=== PATIENT | female | born 1990 | race African-American/Black ===

== ENCOUNTER 2024-08-14 11:54 | Inpatient (IN) | payer OTHER ==
[2024-08-14] MEDS: SODIUM CHLORIDE 1,000 ML IV SCH (12:25)
[2024-08-14] MEDS ORDERED: PROMETHAZINE HCL 25 MG/1 ML VIAL ONE (12:46)
[2024-08-14] MEDS ORDERED: BUTORPHANOL TARTRATE 1 MG/ML VIAL ONE (12:46)
[2024-08-14] MEDS: BUTORPHANOL TARTRATE 1 MG/ML VIAL IVPB ONE (12:50)
[2024-08-14] MEDS: PROMETHAZINE HCL 25 MG/1 ML VIAL IVPB ONE (12:50)
[2024-08-14] MEDS ORDERED: ELECTROLYTE-148 SOLN 1,000 ML IV SCH (13:00)
[2024-08-14 13:29] LABS: BASO % 0.3 % (0-2.0); EOS % 0.8 % (0-4.5); HEMATOCRIT 38.3 % (32.4-45.2); HEMOGLOBIN 13.1 GM/dL (10.7-15.3); LYMPH % 19.6 % (8-40); MCH 31.7 pg (25.7-33.7); MCHC 34.1 g/dl (32.0-36.0); MEAN PLT VOLUME 8.6 fl (7.5-11.1); MONO % 6.2 % (3.8-10.2); NEUT % 73.1 % (42.8-82.8); PLATELET COUNT 215 10^3/uL (134-434); RBC 4.12 M/mm3 (3.60-5.2); WHITE BLOOD COUNT 8.2 K/mm3 (4.0-10.0)
[2024-08-14 13:34] LABS: INR 0.98 (0.83-1.09); PROTHROMBIN TIME (PATIENT) 10.8 SEC (9.7-13.0)
[2024-08-14 13:35] VITALS: BMI 30.2
[2024-08-14 13:37] LABS: ACTIVATED PTT 28.3 SECONDS (25.2-36.5)
[2024-08-14 13:46] LABS: BLOOD UREA NITROGEN 6.9 mg/dL (7-18); CALCIUM 9.4 mg/dL (8.5-10.1)
[2024-08-14 13:48] LABS: CREATININE 0.5 mg/dL (0.55-1.3)
[2024-08-14] MEDS ORDERED: OXYTOCIN 30 UNITS in 0.9% NS 30 UNIT/500 ML INFUS.BAG IVPB ONE (14:22)
[2024-08-14] MEDS ORDERED: OXYTOCIN 20 UNITS in 0.9% NS 20 UNIT/1,000 ML INFUS.BAG IV ONE (14:22)
[2024-08-14 14:43] LABS: HIV INTERPRETATION NEGATIVE (NEGATIVE)
[2024-08-14] MEDS: OXYTOCIN 30 UNITS in 0.9% NS 30 UNIT/500 ML INFUS.BAG IVPB SCH (15:00)
[2024-08-14] MEDS: METHYLERGONOVINE MALEATE 0.2 MG/1 ML AMP IM PRN (15:15)
[2024-08-14] MEDS ORDERED: oxyCODONE HCL 5 MG TABLET PO PRN (15:27)
[2024-08-14] MEDS ORDERED: BENZOCAINE 28 GM HEMORRHOIDAL OINTMENT TP PRN (15:27)
[2024-08-14] MEDS ORDERED: ACETAMINOPHEN 325 MG TABLET (FP) PO PRN (15:27)
[2024-08-14] MEDS ORDERED: BENZOCAINE 20% 57 GM BOTTLE TP PRN (15:27)
[2024-08-14] MEDS ORDERED: WITCH HAZEL 50% (TUCKS) 40 PAD/JAR PAD TP PRN (15:27)
[2024-08-14] MEDS ORDERED: BISACODYL 10 MG SUPP.RECT RC PRN (15:27)
[2024-08-14] MEDS ORDERED: OXYTOCIN 30 UNITS in 0.9% NS 30 UNIT/500 ML INFUS.BAG IVPB SCH (15:30)
[2024-08-14] MEDS ORDERED: IBUPROFEN 600 MG TABLET (FP) PO ONE (15:37)
[2024-08-14] MEDS: IBUPROFEN 600 MG TABLET (FP) PO PRN (15:40)
[2024-08-14] MEDS: OXYTOCIN 20 UNITS in 0.9% NS 20 UNIT/1,000 ML INFUS.BAG IV SCH (15:43)
[2024-08-15 07:06] LABS: BASO % 0.3 % (0-2.0); EOS % 0.8 % (0-4.5); HEMOGLOBIN 11.9 GM/dL (10.7-15.3); LYMPH % 19.8 % (8-40); MCH 31.6 pg (25.7-33.7); MCHC 33.9 g/dl (32.0-36.0); MEAN CELL VOLUME 93.2 fl (80-96); MEAN PLT VOLUME 8.4 fl (7.5-11.1); MONO % 8.8 % (3.8-10.2); NEUT % 70.3 % (42.8-82.8); PLATELET COUNT 216 10^3/uL (134-434); RBC 3.75 M/mm3 (3.60-5.2); WHITE BLOOD COUNT 11.7 K/mm3 (4.0-10.0)
[2024-08-15] MEDS ORDERED: SENNOSIDES/DOCUSATE COMBO (SENNA PLUS) TABLET (UD) PO PRN (22:00)
[2024-08-16 09:32] VITALS: BP 115/75; PULSE 90; RESP 18; TEMP 98
== END 2024-08-16 12:40 | disposition home or self-care (01) | DRG 560 ==
LOC: JLDR 11:54 → J3W 17:15
PROVIDERS: ADMIT Specialist; ATTEND Specialist
PROC: 10E0XZZ Delivery of Products of Conception, External Approach (ICD-10-PCS; principal; 2024-08-14)
DX: O66.0 Obstructed labor due to shoulder dystocia (principal); O69.1XX0 Labor and delivery complicated by cord around neck, with compression, not applicable or unspecified; Z3A.38 38 weeks gestation of pregnancy; Z37.0 Single live birth
CPT/HCPCS: 36415; 59409; 80048; 85025; 85610; 85730; 86780; 86850; 86900; 86901; 87389